=== PATIENT | female | born 1975 | race Caucasian/White ===

== ENCOUNTER 2016-04-22 15:37 | Emergency (ER) | payer OTHER ==
[~2016-04-22] VITALS: Ht 154.9 cm; Wt 73.3 kg
[~2016-04-22 15:37] MED LIST: ABILIFY10 MG PO; ALEVE220 MG PO; AMLODIPINE BESY10 MG PO; AMLODIPINE BESYL5 MG PO; ARIPIPRAZOLE2 MG PO; ATIVAN0.5 MG PO; ATIVAN1 MG PO; BENTYL20 MG PO; BUPROPION XL300 MG PO; CELEXA20 MG PO; CIPRO500 MG PO; COLACE100 MG PO; ESCITALOPRAM OX10 MG PO; ESCITALOPRAM OX20 MG PO; FLUOXETINE HCL40 MG PO; GABAPENTIN100 MG PO; HYDROCHLOROTHIA25 MG PO; HYDROCODON-ACE1 EAC7 PO; KEPPRA500 MG PO; LAMICTAL25 MG PO; LEXAPRO10 MG PO; LEXAPRO20 MG PO; LIBRIUM25 MG PO; LITHIUM CARBON150 MG PO; LITHIUM CARBON300 M1 PO; LITHIUM CARBON300 MG PO; LORAZEPAM1 MG PO; LORTAB 5-325 M1 EACH PO; METHOCARBAMOL500 MG PO; NAPROSYN500 MG PO; NEURONTIN400 MG PO; NORCO 5/3251 TABLET PO; OXYCODONE-APAP1 EACH PO; PEPCID20 MG PO; PERCOCET 5/31 TABLET PO; TRAZODONE HCL50 MG PO; VALIUM5 MG PO; WELLBUTRIN XL300 MG PO; ZESTORETIC 20-1 EAC1 PO; ZOFRAN4 MG PO; ZOFRAN8 MG PO
[2016-04-22] MEDS ORDERED: XARELTO10 MG PO (16:01)
[2016-04-22 16:30] LABS: HEMATOCRIT 38.2 % (36.0-46.0); MCH 33.2 PG (29.0-34.0); MCHC 34.3 G/DL (30.0-36.0); MCV 96.7 FL (83-99); MEAN PLAT.VOLUME 9.8 uM^3 (9.5-12.4); PLATELET COUNT 294 K/uL (156-360); RBC DIS.WIDTH-CV 12.8 % (11.8-14.6); RBC DIS.WIDTH-SD 43.8 % (39-53); RED BLOOD COUNT 3.95 M/uL (3.80-5.20); WHITE BLOOD COUNT 10.6 K/uL (4.1-10.2)
[2016-04-22 16:40] LABS: CHLORIDE 107 mEq/L (99-109); POTASSIUM 3.4 mEq/L (3.7-5.4); SODIUM 140 mEq/L (136-147)
[2016-04-22 16:42] LABS: INTER. NORMALIZED RATIO 0.9; PROTHROMBIN TIME 9.6 (9.2-11.2); PTT 33.8 (25-32)
[2016-04-22 16:43] LABS: GLUCOSE 84 mg/dL (70-99)
[2016-04-22 16:44] LABS: ANION GAP 8 MEQ/L (2-14)
[2016-04-22 16:45] LABS: TOTAL BILIRUBIN 0.2 mg/dL (0.0-1.0)
[2016-04-22 16:46] LABS: ALKALINE PHOSPHATASE 75 IU/L (3-129); GFR ESTIMATE (CALCULATED) > 59 mL/min/
[2016-04-22 16:48] LABS: UREA NITROGEN (BUN) 9 mg/dL (9-23)
[2016-04-22 16:50] LABS: LIPASE 29 U/L (1.0-51.0)
[2016-04-22 16:51] LABS: TROP-I INTERPRETATION NEGATIVE; TROPONIN-I < 0.01 ng/mL (0.0-0.30)
[2016-04-22] MEDS ORDERED: PERCOCET 5/31 TABLET PO (18:41)
[2016-04-22] MEDS ORDERED: MELOXICAM15 MG PO (18:41)
[2016-04-22] MEDS ORDERED: ZOFRAN4 MG PO (18:41)
[2016-04-22 19:00] LABS: ADD MIUA? YES; BILIRUBIN NEGATIVE; BLOOD NEGATIVE; COLOR YELLOW ((YELLOW)); GLUCOSE (STRIP) NEGATIVE; KETONES NEGATIVE; LEUKOCYTES NEGATIVE; NITRITE NEGATIVE; PH, URINE 6.5 (5-8); PROTEIN (STRIP) NEGATIVE; SPECIFIC GRAVITY 1.007 (1.000-1.030); UROBILINOGEN 0.2 MG/DL (0.2-1.0)
[2016-04-22 19:21] VITALS: BP 135/79
[2016-04-22 19:48] LABS: BACTERIA 2+ /HPF; EPITHELIAL CELLS 1+ /HPF; MUCUS NONE SEEN /LPF; RED BLOOD CELLS 0-5 /HPF (0-5); WHITE BLOOD CELLS 0-5 /HPF (0-5)
[2016-04-22 19:49] LABS: CASTS NONE SEEN /LPF; CRYSTALS NONE SEEN
== END 2016-04-22 19:23 | disposition home or self-care (01) ==
LOC: EME 15:37
PROVIDERS: Nurse Practitioner Family
DX: R11.2 Nausea with vomiting, unspecified (principal); M25.552 Pain in left hip; G89.29 Other chronic pain; S46.912A Strain of unspecified muscle, fascia and tendon at shoulder and upper arm level, left arm, initial encounter; J45.909 Unspecified asthma, uncomplicated; R56.9 Unspecified convulsions; F17.200 Nicotine dependence, unspecified, uncomplicated; Z86.711 Personal history of pulmonary embolism; Z79.01 Long term (current) use of anticoagulants
CPT/HCPCS: 71020; 73030; 73502; 80053; 81003; 83690; 84484; 85027; 85610; 85730; 93005; 99281; 99285; J2270; J2405; J7030

== ENCOUNTER 2016-05-11 10:26 | Emergency (ER) | payer OTHER ==
[~2016-05-11] VITALS: Ht 154.9 cm; Wt 69.9 kg
[~2016-05-11 10:26] MED LIST changes: +MELOXICAM15 MG PO; +XARELTO10 MG PO
[2016-05-11 10:36] VITALS: BP 189/103
[2016-05-11 11:28] LABS: MCH 32.5 PG (29.0-34.0); MCHC 34.1 G/DL (30.0-36.0); MCV 95.4 FL (83-99); MEAN PLAT.VOLUME 9.1 uM^3 (9.5-12.4); PLATELET COUNT 398 K/uL (156-360); RBC DIS.WIDTH-CV 12.3 % (11.8-14.6); RBC DIS.WIDTH-SD 41.7 % (39-53); RED BLOOD COUNT 4.09 M/uL (3.80-5.20); WHITE BLOOD COUNT 14.3 K/uL (4.1-10.2)
[2016-05-11 11:39] LABS: CHLORIDE 107 mEq/L (99-109); POTASSIUM 3.7 mEq/L (3.7-5.4); SODIUM 141 mEq/L (136-147)
[2016-05-11 11:41] LABS: GLUCOSE 101 mg/dL (70-99)
[2016-05-11 11:42] LABS: ANION GAP 12 MEQ/L (2-14)
[2016-05-11 11:44] LABS: GFR ESTIMATE (CALCULATED) 58 mL/min/
[2016-05-11 11:45] LABS: UREA NITROGEN (BUN) 9 mg/dL (9-23)
[2016-05-11 11:52] LABS: TROP-I INTERPRETATION NEGATIVE; TROPONIN-I 0.02 ng/mL (0.0-0.30)
== END 2016-05-11 12:48 | disposition left against medical advice (07) ==
LOC: EME 10:26
PROVIDERS: Emergency Medicine
DX: R07.9 Chest pain, unspecified (principal); D72.829 Elevated white blood cell count, unspecified; F17.200 Nicotine dependence, unspecified, uncomplicated
CPT/HCPCS: 70450; 71020; 80048; 84484; 85027; 87502; 93005; 99281; 99284

== ENCOUNTER 2016-06-07 19:20 | Emergency (ER) | payer OTHER ==
[~2016-06-07] VITALS: Ht 154.9 cm; Wt 67.5 kg
[2016-06-07 20:12] VITALS: BP 142/70
[2016-06-08] MEDS ORDERED: KEPPRA500 MG PO (02:55)
== END 2016-06-07 20:14 | disposition home or self-care (01) ==
LOC: EME → EDBD 19:20 → EME 20:14
DX: G40.909 Epilepsy, unspecified, not intractable, without status epilepticus (principal); J45.909 Unspecified asthma, uncomplicated; F17.200 Nicotine dependence, unspecified, uncomplicated
CPT/HCPCS: 99281; 99284

== ENCOUNTER 2016-06-08 01:11 | Emergency (ER) | payer OTHER ==
[~2016-06-08] VITALS: Ht 154.9 cm; Wt 68.2 kg
[2016-06-08 01:59] LABS: HEMATOCRIT 36.9 % (36.0-46.0); MCH 32.8 PG (29.0-34.0); MCHC 34.1 G/DL (30.0-36.0); MCV 96.1 FL (83-99); MEAN PLAT.VOLUME 9.4 uM^3 (9.5-12.4); PLATELET COUNT 357 K/uL (156-360); RBC DIS.WIDTH-CV 12.2 % (11.8-14.6); RBC DIS.WIDTH-SD 42.9 % (39-53); RED BLOOD COUNT 3.84 M/uL (3.80-5.20); WHITE BLOOD COUNT 10.7 K/uL (4.1-10.2)
[2016-06-08 02:20] LABS: CHLORIDE 110 mEq/L (99-109); POTASSIUM 3.9 mEq/L (3.7-5.4); SODIUM 143 mEq/L (136-147)
[2016-06-08 02:22] LABS: GLUCOSE 82 mg/dL (70-99)
[2016-06-08 02:23] LABS: ANION GAP 11 MEQ/L (2-14)
[2016-06-08 02:26] LABS: GFR ESTIMATE (CALCULATED) > 59 mL/min/
[2016-06-08 02:27] LABS: UREA NITROGEN (BUN) 11 mg/dL (9-23)
[2016-06-08] MEDS ORDERED: KEPPRA500 MG PO (02:55)
[2016-06-08 03:23] VITALS: BP 145/85
== END 2016-06-08 03:24 | disposition home or self-care (01) ==
LOC: EME → EDBD 01:11 → EME 01:11
PROVIDERS: Emergency Medicine
DX: R56.9 Unspecified convulsions (principal); R51 Headache; Z91.14 Patient's other noncompliance with medication regimen; F17.200 Nicotine dependence, unspecified, uncomplicated
CPT/HCPCS: 70450; 80048; 81003; 85027; 87086; 99281; 99285; J1885; J1953; J2060; J7050

== ENCOUNTER 2016-06-25 14:46 | Observation (INO) | payer OTHER ==
[~2016-06-25] VITALS: Ht 152.4 cm; Wt 67.0 kg
[2016-06-25 16:05] LABS: HEMATOCRIT 40.2 % (36.0-46.0); MCH 32.9 PG (29.0-34.0); MCHC 34.1 G/DL (30.0-36.0); MCV 96.6 FL (83-99); MEAN PLAT.VOLUME 9.2 uM^3 (9.5-12.4); PLATELET COUNT 388 K/uL (156-360); RBC DIS.WIDTH-CV 11.9 % (11.8-14.6); RBC DIS.WIDTH-SD 42.1 % (39-53); RED BLOOD COUNT 4.16 M/uL (3.80-5.20)
[2016-06-25 16:10] LABS: CHLORIDE 99 mEq/L (99-109); POTASSIUM 4.1 mEq/L (3.7-5.4); SODIUM 137 mEq/L (136-147)
[2016-06-25 16:12] LABS: GLUCOSE 72 mg/dL (70-99)
[2016-06-25 16:13] LABS: ANION GAP 11 MEQ/L (2-14)
[2016-06-25 16:16] LABS: GFR ESTIMATE (CALCULATED) 44 mL/min/; UREA NITROGEN (BUN) 17 mg/dL (9-23)
[2016-06-25 16:23] LABS: TROP-I INTERPRETATION NEGATIVE; TROPONIN-I < 0.01 ng/mL (0.0-0.30)
[2016-06-25] MEDS ORDERED: CLONAZEPAM1 MG PO (20:25)
[2016-06-25] MEDS ORDERED: VENLAFAXINE HC150 M1 PO (20:25)
[2016-06-25] MEDS ORDERED: ONE-A-DAY ESSE1 EAC1 PO (20:29)
[2016-06-25] MEDS ORDERED: LISINOPRIL-HCT1 EACH PO (20:29)
[2016-06-25 20:52] LABS: INTER. NORMALIZED RATIO 0.9; PTT 33.1 (25-32)
[2016-06-25 21:05] LABS: PROTHROMBIN TIME 9.3 (9.2-11.2)
[2016-06-26 00:15] VITALS: BP 147/84
[2016-06-26 00:45] VITALS: BP 147/84
[2016-06-26 04:10] VITALS: BP 121/79
[2016-06-26 04:22] LABS: HEMATOCRIT 37.3 % (36.0-46.0); MCH 33.1 PG (29.0-34.0); MCHC 34.6 G/DL (30.0-36.0); MCV 95.6 FL (83-99); MEAN PLAT.VOLUME 9.3 uM^3 (9.5-12.4); PLATELET COUNT 364 K/uL (156-360); RBC DIS.WIDTH-CV 11.9 % (11.8-14.6); RBC DIS.WIDTH-SD 41.8 % (39-53)
[2016-06-26 04:26] LABS: CHLORIDE 104 mEq/L (99-109); POTASSIUM 4.4 mEq/L (3.7-5.4); SODIUM 138 mEq/L (136-147)
[2016-06-26 04:29] LABS: GLUCOSE 75 mg/dL (70-99); MAGNESIUM 1.9 mg/dL (1.3-2.7)
[2016-06-26 04:30] LABS: ANION GAP 9 MEQ/L (2-14)
[2016-06-26 04:31] LABS: TOTAL BILIRUBIN 0.2 mg/dL (0.0-1.0)
[2016-06-26 04:32] LABS: ALKALINE PHOSPHATASE 77 IU/L (3-129); GFR ESTIMATE (CALCULATED) 48 mL/min/; TOTAL BILIRUBIN 0.2 mg/dL (0.0-1.0)
[2016-06-26 04:33] LABS: ALKALINE PHOSPHATASE 77 IU/L (3-129); UREA NITROGEN (BUN) 15 mg/dL (9-23)
[2016-06-26 04:36] LABS: DIRECT BILIRUBIN 0.1 mg/dL (0.0-0.3)
[2016-06-26 08:06] LABS: ADD MIUA? YES; BILIRUBIN NEGATIVE; BLOOD MODERATE; COLOR YELLOW ((YELLOW)); GLUCOSE (STRIP) NEGATIVE; KETONES NEGATIVE; LEUKOCYTES NEGATIVE; NITRITE NEGATIVE; PROTEIN (STRIP) NEGATIVE; SPECIFIC GRAVITY 1.017 (1.000-1.030); UROBILINOGEN 0.2 MG/DL (0.2-1.0)
[2016-06-26 08:09] VITALS: BP 138/88
[2016-06-26 09:26] LABS: BACTERIA RARE /HPF; EPITHELIAL CELLS RARE /HPF; MUCUS NONE SEEN /LPF; RED BLOOD CELLS 0-5 /HPF (0-5); WHITE BLOOD CELLS 0-5 /HPF (0-5)
[2016-06-26 10:56] VITALS: BP 134/88
[2016-06-26] MEDS ORDERED: ELIQUIS5 MG PO (13:35)
== END 2016-06-26 15:50 | disposition home or self-care (01) ==
LOC: EME 14:46 → EDOF 22:09 → 3EAST 22:09 → EDOF 22:09 → 3EAST 06-26 00:02
PROVIDERS: Hospitalist; Physician Assistant
PROC: 069Y0ZZ Drainage of Lower Vein, Open Approach (ICD-10-PCS; principal; 2016-06-25)
DX: I26.99 Other pulmonary embolism without acute cor pulmonale (principal); N17.9 Acute kidney failure, unspecified; K64.5 Perianal venous thrombosis; Z91.19 Patient's noncompliance with other medical treatment and regimen; F10.20 Alcohol dependence, uncomplicated; F31.9 Bipolar disorder, unspecified; I10 Essential (primary) hypertension; G89.29 Other chronic pain; M54.9 Dorsalgia, unspecified; F17.210 Nicotine dependence, cigarettes, uncomplicated; D72.829 Elevated white blood cell count, unspecified; Z79.01 Long term (current) use of anticoagulants; T45.516A Underdosing of anticoagulants, initial encounter; Z91.128 Patient's intentional underdosing of medication regimen for other reason
CPT/HCPCS: 71020; 71275; 80048; 80053; 80076; 81003; 83735; 84484; 85027; 85610; 85730; 93005; 99281; 99285; G0378; J7030

== ENCOUNTER 2016-08-10 07:56 | Emergency (ER) | payer OTHER ==
[~2016-08-10] VITALS: Ht 154.9 cm; Wt 69.4 kg
[~2016-08-10 07:56] MED LIST changes: +CLONAZEPAM1 MG PO; +ELIQUIS5 MG PO; +LISINOPRIL-HCT1 EACH PO; +ONE-A-DAY ESSE1 EAC1 PO; +VENLAFAXINE HC150 M1 PO
[2016-08-10 08:25] LABS: HEMATOCRIT 34.1 % (36.0-46.0); MCHC 33.7 G/DL (30.0-36.0); MEAN PLAT.VOLUME 9.1 uM^3 (9.5-12.4); PLATELET COUNT 376 K/uL (156-360); RED BLOOD COUNT 3.48 M/uL (3.80-5.20)
[2016-08-10 08:40] LABS: CHLORIDE 103 mEq/L (99-109); POTASSIUM 3.5 mEq/L (3.7-5.4); SODIUM 136 mEq/L (136-147)
[2016-08-10 08:41] LABS: GLUCOSE 84 mg/dL (70-99)
[2016-08-10 08:43] LABS: ANION GAP 10 MEQ/L (2-14)
[2016-08-10 08:45] LABS: GFR ESTIMATE (CALCULATED) 48 mL/min/
[2016-08-10 08:46] LABS: UREA NITROGEN (BUN) 12 mg/dL (9-23)
[2016-08-10 08:51] LABS: TROP-I INTERPRETATION NEGATIVE; TROPONIN-I < 0.01 ng/mL (0.0-0.30)
[2016-08-10] MEDS ORDERED: DILAUDID2 MG PO (11:26)
[2016-08-10 11:40] VITALS: BP 137/81
== END 2016-08-10 11:52 | disposition home or self-care (01) ==
LOC: EME 07:56
DX: M54.12 Radiculopathy, cervical region (principal); R20.2 Paresthesia of skin; J45.909 Unspecified asthma, uncomplicated; I10 Essential (primary) hypertension; Z86.711 Personal history of pulmonary embolism; F17.200 Nicotine dependence, unspecified, uncomplicated
CPT/HCPCS: 71020; 72125; 80048; 84484; 85027; 93005; 99281; 99285; J2270; J3010

== ENCOUNTER 2016-08-12 10:02 | Emergency (ER) | payer OTHER ==
[~2016-08-12] VITALS: Ht 152.4 cm; Wt 69.0 kg
[~2016-08-12 10:02] MED LIST changes: +DILAUDID2 MG PO
[2016-08-12 11:29] VITALS: BP 149/100
== END 2016-08-12 11:31 | disposition home or self-care (01) ==
LOC: EME 10:02
DX: M54.12 Radiculopathy, cervical region (principal); F17.200 Nicotine dependence, unspecified, uncomplicated; S83.91XA Sprain of unspecified site of right knee, initial encounter; W19.XXXA Unspecified fall, initial encounter
CPT/HCPCS: 73564; 99281; 99284; J1885

== ENCOUNTER 2016-08-23 12:53 | Inpatient (IN) | payer OTHER ==
[~2016-08-23] VITALS: Ht 152.4 cm; Wt 67.6 kg
[2016-08-23 15:13] LABS: CHLORIDE 107 mEq/L (99-109); POTASSIUM 4.5 mEq/L (3.7-5.4); SODIUM 137 mEq/L (136-147)
[2016-08-23 15:16] LABS: GLUCOSE 84 mg/dL (70-99); HEMATOCRIT 35.1 % (36.0-46.0); MCH 33.3 PG (29.0-34.0); MCHC 33.9 G/DL (30.0-36.0); MCV 98.3 FL (83-99); MEAN PLAT.VOLUME 8.8 uM^3 (9.5-12.4); PLATELET COUNT 313 K/uL (156-360); RBC DIS.WIDTH-CV 13.3 % (11.8-14.6); RBC DIS.WIDTH-SD 47.8 % (39-53); RED BLOOD COUNT 3.57 M/uL (3.80-5.20); WHITE BLOOD COUNT 13.7 K/uL (4.1-10.2)
[2016-08-23 15:17] LABS: ANION GAP 8 MEQ/L (2-14); TOTAL BILIRUBIN 0.1 mg/dL (0.0-1.0)
[2016-08-23 15:19] LABS: ALKALINE PHOSPHATASE 64 IU/L (3-129); D-DIMER ELISA 0.53 mg/L FEU (< 0.57); GFR ESTIMATE (CALCULATED) 44 mL/min/
[2016-08-23 15:20] LABS: UREA NITROGEN (BUN) 17 mg/dL (9-23)
[2016-08-23 15:23] LABS: LIPASE 365 U/L (1.0-51.0)
[2016-08-23 15:28] LABS: QUANTITATIVE HCG < 4.0 MIU/ML
[2016-08-23 17:00] LABS: SERUM ETHYL ALCOHOL < 10 mg/dL
[2016-08-23 17:09] LABS: TROP-I INTERPRETATION NEGATIVE; TROPONIN-I < 0.01 ng/mL (0.0-0.30)
[2016-08-23] MEDS ORDERED: VENLAFAXINE HC150 M1 PO (17:17)
[2016-08-23] MEDS ORDERED: OXYCODONE-APAP1 EACH PO (17:19)
[2016-08-23 19:59] LABS: MAGNESIUM 2.2 mg/dL (1.3-2.7)
[2016-08-23 21:05] VITALS: BP 118/57
[2016-08-23 23:29] VITALS: BP 93/55
[2016-08-24 07:28] VITALS: BP 124/86
[2016-08-24 07:56] LABS: ALKALINE PHOSPHATASE 46 IU/L (3-129); ANION GAP 5 MEQ/L (2-14); CHLORIDE 113 MEQ/L (99-109); GFR ESTIMATE (CALCULATED) 53 mL/min/; GLUCOSE 77 mg/dL (70-99); HDL CHOLESTEROL 37 MG/DL (Desirable>=50); LDL CHOLESTEROL 84 mg/dL (Desirable<100); LIPASE 50 U/L (1.0-51.0); MAGNESIUM 1.9 mg/dl (1.3-2.7); NON-HDL CHOLESTEROL 98 mg/dL (Desirable<160); POTASSIUM 4.9 MEQ/L (3.7-5.4); SAMPLE HEMOLYSIS CHECK 0; SAMPLE ICTERIC CHECK 0; SAMPLE LIPEMIA CHECK 0; SODIUM 141 MEQ/L (136-147); TOTAL BILIRUBIN 0.2 MG/DL (0.0-1.0); TOTAL CHOLESTEROL 135 mg/dL (Desirable<200); TRIGLYCERIDES 69 MG/DL (Normal: <150); UREA NITROGEN (BUN) 18 mg/dL (9-23)
[2016-08-24 10:04] VITALS: BP 124/86
== END 2016-08-24 12:07 | disposition left against medical advice (07) | DRG 440 ==
LOC: EME 12:53 → EDOF 19:00 → 5SOUTH 20:54
PROVIDERS: Hospitalist; Nurse Practitioner Family; Physician Assistant Medical
DX: K85.90 Acute pancreatitis without necrosis or infection, unspecified (principal); G89.29 Other chronic pain; M54.6 Pain in thoracic spine; F17.210 Nicotine dependence, cigarettes, uncomplicated; F41.8 Other specified anxiety disorders; I12.9 Hypertensive chronic kidney disease with stage 1 through stage 4 chronic kidney disease, or unspecified chronic kidney disease; N18.3 Chronic kidney disease, stage 3 (moderate); Z91.14 Patient's other noncompliance with medication regimen; Z86.718 Personal history of other venous thrombosis and embolism; Z86.711 Personal history of pulmonary embolism; F31.9 Bipolar disorder, unspecified
CPT/HCPCS: 71020; 71275; 74160; 80053; 80061; 80306 90; 81003; 82948; 83690; 83735; 84484; 84702; 85027; 85379; 93005; 99281; 99285; C9113; G0480; J1170; J1650; J1815; J1885; J2060; J2270; J3010; J3411; J7030; J7120

== ENCOUNTER 2016-09-13 22:09 | Emergency (ER) | payer OTHER ==
[~2016-09-13] VITALS: Ht 154.9 cm; Wt 65.8 kg
[2016-09-14] MEDS ORDERED: PERCOCET 5/31 TABLET PO (00:38)
[2016-09-14 01:27] VITALS: BP 140/80
== END 2016-09-14 01:29 | disposition home or self-care (01) ==
LOC: EME 22:09
DX: M25.512 Pain in left shoulder (principal); I10 Essential (primary) hypertension; F17.200 Nicotine dependence, unspecified, uncomplicated
CPT/HCPCS: 93005; 99281; 99284; J1885

== ENCOUNTER 2016-10-05 08:49 | Emergency (ER) | payer SELFPAY ==
[~2016-10-05] VITALS: Ht 154.9 cm; Wt 38.6 kg
[2016-10-05] MEDS ORDERED: LEVETIRACETAM500 MG PO (09:07)
[2016-10-05] MEDS ORDERED: KEPPRA500 MG PO (10:02)
[2016-10-05 10:18] VITALS: BP 125/83
== END 2016-10-05 10:20 | disposition home or self-care (01) ==
LOC: EME → EDBD 08:49 → EME 10:20
DX: G40.909 Epilepsy, unspecified, not intractable, without status epilepticus (principal); T42.6X6A Underdosing of other antiepileptic and sedative-hypnotic drugs, initial encounter; Z91.128 Patient's intentional underdosing of medication regimen for other reason; F32.9 Major depressive disorder, single episode, unspecified; I10 Essential (primary) hypertension; J45.909 Unspecified asthma, uncomplicated; F17.200 Nicotine dependence, unspecified, uncomplicated; Z90.49 Acquired absence of other specified parts of digestive tract
CPT/HCPCS: 99281; 99284

== ENCOUNTER 2016-11-10 11:00 | Emergency (ER) | payer OTHER ==
[~2016-11-10] VITALS: Ht 154.9 cm; Wt 62.1 kg
[~2016-11-10 11:00] MED LIST changes: +LEVETIRACETAM500 MG PO
[2016-11-10] MEDS ORDERED: PERCOCET 10/1 TABLET PO (13:01)
[2016-11-10 13:29] VITALS: BP 142/78
== END 2016-11-10 13:33 | disposition home or self-care (01) ==
LOC: EME 11:00
DX: M54.5 Low back pain (principal); J45.909 Unspecified asthma, uncomplicated; I10 Essential (primary) hypertension; F17.200 Nicotine dependence, unspecified, uncomplicated
CPT/HCPCS: J2270

== ENCOUNTER 2016-11-15 16:34 | Emergency (ER) | payer OTHER ==
[~2016-11-15] VITALS: Ht 154.9 cm; Wt 61.7 kg
[~2016-11-15 16:34] MED LIST changes: +PERCOCET 10/1 TABLET PO
[2016-11-15] MEDS ORDERED: PERCOCET 5/31 TABLET PO (16:59)
[2016-11-15] MEDS ORDERED: FLEXERIL10 MG PO (16:59)
[2016-11-15 17:58] VITALS: BP 154/85
== END 2016-11-15 17:59 | disposition home or self-care (01) ==
LOC: EME 16:34
DX: G89.29 Other chronic pain (principal); M54.41 Lumbago with sciatica, right side; F17.200 Nicotine dependence, unspecified, uncomplicated
CPT/HCPCS: 99281; 99283; J1885; J2270

== ENCOUNTER 2016-12-03 18:40 | Emergency (ER) | payer OTHER ==
[~2016-12-03] VITALS: Ht 154.9 cm; Wt 61.3 kg
[~2016-12-03 18:40] MED LIST changes: +FLEXERIL10 MG PO
[2016-12-03] MEDS ORDERED: PERCOCET 5/31 TABLET PO ×2 (19:17→19:22)
[2016-12-03 19:33] VITALS: BP 115/75
== END 2016-12-03 19:34 | disposition home or self-care (01) ==
LOC: EME 18:40
DX: G89.29 Other chronic pain (principal); M25.552 Pain in left hip; M25.512 Pain in left shoulder; I10 Essential (primary) hypertension; F17.200 Nicotine dependence, unspecified, uncomplicated
CPT/HCPCS: 99281; 99282

== ENCOUNTER 2016-12-05 13:27 | Emergency (ER) | payer OTHER ==
[~2016-12-05] VITALS: Ht 154.9 cm; Wt 60.8 kg
[2016-12-05] MEDS ORDERED: PREDNISONE50 MG PO (16:37)
[2016-12-05] MEDS ORDERED: PERCOCET 5/31 TABLET PO (16:37)
[2016-12-05 16:50] VITALS: BP 119/72
== END 2016-12-05 16:51 | disposition home or self-care (01) ==
LOC: EME 13:27
DX: M25.552 Pain in left hip (principal); M25.561 Pain in right knee; F17.200 Nicotine dependence, unspecified, uncomplicated
CPT/HCPCS: 73502; 73564; 99281; 99284; J2270

== ENCOUNTER 2016-12-11 19:07 | Emergency (ER) | payer OTHER ==
[~2016-12-11] VITALS: Ht 180.3 cm; Wt 65.0 kg
[~2016-12-11 19:07] MED LIST changes: +PREDNISONE50 MG PO
[2016-12-11 19:44] LABS: HEMATOCRIT 34.5 % (36.0-46.0); MCH 33.9 PG (29.0-34.0); MCHC 34.2 G/DL (30.0-36.0); MCV 99.1 FL (83-99); MEAN PLAT.VOLUME 8.9 uM^3 (9.5-12.4); PLATELET COUNT 449 K/uL (156-360); RBC DIS.WIDTH-CV 12.5 % (11.8-14.6); RBC DIS.WIDTH-SD 45.2 % (39-53); RED BLOOD COUNT 3.48 M/uL (3.80-5.20); WHITE BLOOD COUNT 11.6 K/uL (4.1-10.2)
[2016-12-11 20:21] LABS: TROP-I INTERPRETATION NEGATIVE; TROPONIN-I < 0.01 ng/mL (0.0-0.30)
[2016-12-11 20:23] LABS: AMYLASE 61 IU/L (1-118); CHLORIDE 102 mEq/L (99-109); POTASSIUM 4.3 mEq/L (3.7-5.4); SODIUM 135 mEq/L (136-147)
[2016-12-11 20:25] LABS: GLUCOSE 87 mg/dL (70-99)
[2016-12-11 20:26] LABS: ANION GAP 12 MEQ/L (2-14)
[2016-12-11 20:29] LABS: GFR ESTIMATE (CALCULATED) 41 mL/min/
[2016-12-11 20:30] LABS: UREA NITROGEN (BUN) 34 mg/dL (9-23)
[2016-12-11 20:32] LABS: LIPASE 63 U/L (1.0-51.0)
[2016-12-11 21:56] LABS: TROP-I INTERPRETATION NEGATIVE; TROPONIN-I < 0.01 ng/mL (0.0-0.30)
[2016-12-11 23:11] VITALS: BP 119/74
[2016-12-12] MEDS ORDERED: MEDROL DOSEPAK4 MG PO (20:15)
[2016-12-12] MEDS ORDERED: SKELAXIN800 MG PO (20:15)
== END 2016-12-11 23:12 | disposition home or self-care (01) ==
LOC: EME 19:07
PROVIDERS: Physician Assistant
DX: R07.9 Chest pain, unspecified (principal); N17.9 Acute kidney failure, unspecified; M25.552 Pain in left hip; M25.562 Pain in left knee; M79.602 Pain in left arm; R51 Headache; R10.9 Unspecified abdominal pain; M54.5 Low back pain; G89.29 Other chronic pain; R11.0 Nausea; R42 Dizziness and giddiness; I10 Essential (primary) hypertension; Z86.711 Personal history of pulmonary embolism; Z79.01 Long term (current) use of anticoagulants; Z90.49 Acquired absence of other specified parts of digestive tract; F17.200 Nicotine dependence, unspecified, uncomplicated; Z53.29 Procedure and treatment not carried out because of patient's decision for other reasons
CPT/HCPCS: 71020; 80048; 82150; 83690; 84484; 85027; 93005; 99281; 99285; J1885; J7030

== ENCOUNTER 2016-12-12 13:38 | Emergency (ER) | payer OTHER ==
[~2016-12-12] VITALS: Ht 154.9 cm; Wt 65.0 kg
[2016-12-12 14:37] LABS: HEMATOCRIT 36.7 % (36.0-46.0); MCH 33.5 PG (29.0-34.0); MCHC 34.3 G/DL (30.0-36.0); MCV 97.6 FL (83-99); PLATELET COUNT 422 K/uL (156-360); RBC DIS.WIDTH-CV 12.5 % (11.8-14.6); RED BLOOD COUNT 3.76 M/uL (3.80-5.20); WHITE BLOOD COUNT 14.4 K/uL (4.1-10.2)
[2016-12-12 14:48] LABS: CHLORIDE 103 mEq/L (99-109); POTASSIUM 4.7 mEq/L (3.7-5.4); SODIUM 135 mEq/L (136-147)
[2016-12-12 14:50] LABS: GLUCOSE 81 mg/dL (70-99)
[2016-12-12 14:51] LABS: ANION GAP 13 MEQ/L (2-14)
[2016-12-12 14:52] LABS: TOTAL BILIRUBIN 0.1 mg/dL (0.0-1.0)
[2016-12-12 14:53] LABS: ALKALINE PHOSPHATASE 67 IU/L (3-129)
[2016-12-12 14:54] LABS: GFR ESTIMATE (CALCULATED) 48 mL/min/
[2016-12-12 14:55] LABS: UREA NITROGEN (BUN) 31 mg/dL (9-23)
[2016-12-12 15:51] LABS: ADD MIUA? NO; BILIRUBIN NEGATIVE; BLOOD NEGATIVE; COLOR STRAW ((YELLOW)); GLUCOSE (STRIP) NEGATIVE; KETONES NEGATIVE; LEUKOCYTES NEGATIVE; NITRITE NEGATIVE; PROTEIN (STRIP) NEGATIVE; UROBILINOGEN 0.2 MG/DL (0.2-1.0)
[2016-12-12 15:57] LABS: UCUL ADDED? NO
[2016-12-12] MEDS ORDERED: SKELAXIN800 MG PO (20:15)
[2016-12-12] MEDS ORDERED: MEDROL DOSEPAK4 MG PO (20:15)
[2016-12-12 20:59] VITALS: BP 128/80
== END 2016-12-12 21:01 | disposition home or self-care (01) ==
LOC: EME 13:38
PROVIDERS: Physician Assistant
DX: M54.42 Lumbago with sciatica, left side (principal); G89.29 Other chronic pain; I10 Essential (primary) hypertension; Z86.711 Personal history of pulmonary embolism; F17.200 Nicotine dependence, unspecified, uncomplicated
CPT/HCPCS: 72132; 74177; 80053; 81003; 85027; 99281; 99283; J1885; J2930; J7030; J7050

== ENCOUNTER 2016-12-12 22:19 | Emergency (ER) | payer OTHER ==
[~2016-12-12] VITALS: Ht 154.9 cm; Wt 65.9 kg
[~2016-12-12 22:19] MED LIST changes: +MEDROL DOSEPAK4 MG PO; +SKELAXIN800 MG PO
[2016-12-13 00:56] VITALS: BP 111/76
== END 2016-12-13 00:56 | disposition home or self-care (01) ==
LOC: EME 22:19
DX: G89.29 Other chronic pain (principal); M54.5 Low back pain; M79.605 Pain in left leg; F17.200 Nicotine dependence, unspecified, uncomplicated
CPT/HCPCS: 99281; 99283; J1630

== ENCOUNTER 2017-01-18 15:42 | Emergency (ER) | payer OTHER ==
[~2017-01-18] VITALS: Ht 154.9 cm; Wt 65.9 kg
[2017-01-18] MEDS ORDERED: NAPROXEN500 MG PO (18:09)
[2017-01-18 18:30] VITALS: BP 121/104
== END 2017-01-18 18:31 | disposition home or self-care (01) ==
LOC: EME 15:42
DX: S00.83XA Contusion of other part of head, initial encounter (principal); M25.561 Pain in right knee; W10.9XXA Fall (on) (from) unspecified stairs and steps, initial encounter; Y93.01 Activity, walking, marching and hiking; I10 Essential (primary) hypertension; J45.909 Unspecified asthma, uncomplicated; F32.9 Major depressive disorder, single episode, unspecified; F41.9 Anxiety disorder, unspecified; F17.200 Nicotine dependence, unspecified, uncomplicated
CPT/HCPCS: 70450; 72125; 73564; 99281; 99284

== ENCOUNTER 2017-06-11 20:27 | Inpatient (IN) | payer OTHER ==
[~2017-06-11] VITALS: Ht 154.9 cm; Wt 69.6 kg
[~2017-06-11 20:27] MED LIST changes: +NAPROXEN500 MG PO
[2017-06-11] MEDS ORDERED: GABAPENTIN300 MG PO (21:03)
[2017-06-11] MEDS ORDERED: LODINE400 MG PO (21:04)
[2017-06-11] MEDS ORDERED: SULINDAC200 MG PO (21:04)
[2017-06-11] MEDS ORDERED: VIMPAT150 MG PO (21:05)
[2017-06-11] MEDS ORDERED: VENLAFAXINE HC150 M1 PO (21:05)
[2017-06-11 21:25] LABS: AMPHETAMINE NEGATIVE (500 ng/mL); BENZODIAZEPINES PRESUMPTIVE POSITIVE (150 ng/mL); COCAINE NEGATIVE (150 ng/mL); METHAMPHETAMINE NEGATIVE (500 ng/mL); OPIATES (MORPHINE) NEGATIVE (100 ng/mL); PHENCYCLIDINE NEGATIVE (25 ng/mL); THC CANNABINOIDS NEGATIVE (50 ng/mL)
[2017-06-11 21:26] LABS: BARBITURATES NEGATIVE (200 ng/mL); BUPRENORPHINE NEGATIVE (10 ng/mL); METHADONE NEGATIVE (200 ng/mL); OXYCODONE PRESUMPTIVE POSITIVE (100 ng/mL); PROPOXYPHENE NEGATIVE (300 ng/mL); TRICYCLIC ANTIDEPRESSANTS NEGATIVE (300 ng/mL)
[2017-06-11 21:33] LABS: HEMOGLOBIN 11.3 G/DL (11.9-15.5); MCH 35.8 PG (29.0-34.0); MCHC 35.3 G/DL (30.0-36.0); MCV 101.3 FL (83-99); PLATELET COUNT 374 K/uL (156-360); RBC DIS.WIDTH-CV 13.4 % (11.8-14.6); RED BLOOD COUNT 3.16 M/uL (3.80-5.20); WHITE BLOOD COUNT 16.4 K/uL (4.1-10.2)
[2017-06-11 21:41] LABS: ALBUMIN 3.4 g/dL (3.2-4.8)
[2017-06-11 21:42] LABS: CHLORIDE 103 mEq/L (99-109); POTASSIUM 3.7 mEq/L (3.7-5.4); SODIUM 138 mEq/L (136-147)
[2017-06-11 21:44] LABS: GLUCOSE 82 mg/dL (70-99); TOTAL PROTEIN 6.4 g/dL (6.4-8.3)
[2017-06-11 21:46] LABS: TOTAL BILIRUBIN 0.2 mg/dL (0.0-1.0)
[2017-06-11 21:47] LABS: SERUM ETHYL ALCOHOL < 10 mg/dL
[2017-06-11 21:48] LABS: ALKALINE PHOSPHATASE 71 IU/L (3-129); CREATININE 1.3 mg/dL (0.6-1.3); GFR ESTIMATE (CALCULATED) 48 mL/min/
[2017-06-11 21:49] LABS: AST (GOT) 13 IU/L (2-34)
[2017-06-11 21:50] LABS: UREA NITROGEN (BUN) 19 mg/dL (9-23)
[2017-06-11 21:51] LABS: ALT (GPT) 8 IU/L (3-49); SALICYLATE < 5.0 MG/DL (15-30)
[2017-06-11 21:52] LABS: ACETAMINOPHEN (TYLENOL) < 10 mcg/mL (10-30)
[2017-06-11 21:53] LABS: BENZODIAZEPINES, URINE SCREEN Negative (200 ng/mL)
[2017-06-12 03:25] VITALS: BP 120/78
[2017-06-12 07:52] VITALS: BP 100/56
[2017-06-12 16:18] VITALS: BP 137/67
[2017-06-12 18:52] VITALS: BP 130/76
[2017-06-13 07:53] VITALS: BP 123/71
[2017-06-13 15:41] VITALS: BP 154/90
[2017-06-13 18:18] VITALS: BP 141/86
[2017-06-14 07:59] VITALS: BP 143/82
[2017-06-14] MEDS ORDERED: KETOROLAC TROME10 MG PO (10:47)
[2017-06-14] MEDS ORDERED: EFFEXOR XR75 MG PO ×2 (10:47→10:49)
[2017-06-16] MEDS ORDERED: EFFEXOR XR75 MG PO (14:00)
== END 2017-06-14 12:24 | disposition home or self-care (01) | DRG 880 ==
LOC: EME → EDBD 20:27 → EME 20:27 → 1WEST 06-12 01:53 → EDOF 06-12 01:53 → ENRESERV 06-12 02:43 → 1WEST 06-12 03:15
PROVIDERS: Emergency Medicine
DX: R45.851 Suicidal ideations (principal); F33.1 Major depressive disorder, recurrent, moderate; T46.4X1A Poisoning by angiotensin-converting-enzyme inhibitors, accidental (unintentional), initial encounter; F43.20 Adjustment disorder, unspecified; G89.29 Other chronic pain; I10 Essential (primary) hypertension; M19.90 Unspecified osteoarthritis, unspecified site; F17.210 Nicotine dependence, cigarettes, uncomplicated; F10.21 Alcohol dependence, in remission; G47.00 Insomnia, unspecified; J45.909 Unspecified asthma, uncomplicated; Z83.3 Family history of diabetes mellitus; Z82.49 Family history of ischemic heart disease and other diseases of the circulatory system
CPT/HCPCS: 80053; 84999; 85027; 90839; 93005; 97150 GO; 97165 GO; 99281; 99285; G0480

== ENCOUNTER 2017-07-17 21:19 | Emergency (ER) | payer OTHER ==
[~2017-07-17] VITALS: Ht 160 cm; Wt 70.8 kg
[~2017-07-17 21:19] MED LIST changes: +EFFEXOR XR75 MG PO; +GABAPENTIN300 MG PO; +KETOROLAC TROME10 MG PO; +LODINE400 MG PO; +SULINDAC200 MG PO; +VIMPAT150 MG PO
[2017-07-17 22:05] LABS: HEMOGLOBIN 10.8 G/DL (11.9-15.5); MCH 35.4 PG (29.0-34.0); MCHC 37.2 G/DL (30.0-36.0); PLATELET COUNT 356 K/uL (156-360); RBC DIS.WIDTH-CV 11.8 % (11.8-14.6); RBC DIS.WIDTH-SD 40.7 % (39-53); RED BLOOD COUNT 3.05 M/uL (3.80-5.20); WHITE BLOOD COUNT 15.9 K/uL (4.1-10.2)
[2017-07-17 22:09] LABS: MCV 95.1 FL (83-99)
[2017-07-17 22:28] LABS: CHLORIDE 98 MEQ/L (99-109); POTASSIUM 2.6 MEQ/L (3.7-5.4); SODIUM 128 MEQ/L (136-147)
[2017-07-17 22:33] LABS: GFR ESTIMATE (CALCULATED) > 59 mL/min/; GLUCOSE 94 mg/dL (70-99); UREA NITROGEN (BUN) 11 mg/dL (9-23)
[2017-07-17 22:38] LABS: QUANTITATIVE HCG < 4.0 MIU/ML
[2017-07-17 22:40] VITALS: BP 109/72
== END 2017-07-17 22:41 | disposition left against medical advice (07) ==
LOC: EME → EDBD 21:19 → EME 21:19
PROVIDERS: Emergency Medicine
DX: R56.9 Unspecified convulsions (principal); Z53.21 Procedure and treatment not carried out due to patient leaving prior to being seen by health care provider; R94.31 Abnormal electrocardiogram [ECG] [EKG]; I10 Essential (primary) hypertension; J45.909 Unspecified asthma, uncomplicated; G43.909 Migraine, unspecified, not intractable, without status migrainosus; F41.9 Anxiety disorder, unspecified; F32.9 Major depressive disorder, single episode, unspecified; F17.200 Nicotine dependence, unspecified, uncomplicated; Z87.19 Personal history of other diseases of the digestive system; Z90.49 Acquired absence of other specified parts of digestive tract; Z88.8 Allergy status to other drugs, medicaments and biological substances
CPT/HCPCS: 80048; 81003; 84702; 85027; 93005; 99281; 99285; J2060

== ENCOUNTER 2017-07-20 22:16 | Emergency (ER) | payer OTHER ==
[~2017-07-20] VITALS: Ht 154.9 cm; Wt 61.2 kg
[2017-07-20 23:32] LABS: HEMATOCRIT 35.3 % (36.0-46.0); MCH 35.8 PG (29.0-34.0); MCHC 36.5 G/DL (30.0-36.0); MCV 98.1 FL (83-99); PLATELET COUNT 393 K/uL (156-360); RBC DIS.WIDTH-SD 43.7 % (39-53); WHITE BLOOD COUNT 13.2 K/uL (4.1-10.2)
[2017-07-20 23:34] LABS: HEMOGLOBIN 12.9 G/DL (11.9-15.5)
[2017-07-20 23:43] LABS: CHLORIDE 105 mEq/L (99-109)
[2017-07-20 23:44] LABS: GLUCOSE 89 mg/dL (70-99)
[2017-07-20 23:48] LABS: CREATININE 1.1 mg/dL (0.6-1.3); GFR ESTIMATE (CALCULATED) 58 mL/min/; POTASSIUM 3.2 mEq/L (3.7-5.4); SERUM ETHYL ALCOHOL < 10 mg/dL; SODIUM 141 mEq/L (136-147)
[2017-07-20 23:50] LABS: UREA NITROGEN (BUN) 28 mg/dL (9-23)
[2017-07-20 23:51] LABS: SALICYLATE < 5.0 MG/DL (15-30)
[2017-07-20 23:52] LABS: ACETAMINOPHEN (TYLENOL) < 10 mcg/mL (10-30)
[2017-07-21 02:02] VITALS: BP 134/85
== END 2017-07-21 02:03 | disposition home or self-care (01) ==
LOC: EME 22:16
PROVIDERS: Emergency Medicine
DX: F32.9 Major depressive disorder, single episode, unspecified (principal); Z53.21 Procedure and treatment not carried out due to patient leaving prior to being seen by health care provider; I10 Essential (primary) hypertension; J45.909 Unspecified asthma, uncomplicated; R56.9 Unspecified convulsions; G43.909 Migraine, unspecified, not intractable, without status migrainosus; F17.200 Nicotine dependence, unspecified, uncomplicated; F41.9 Anxiety disorder, unspecified; F20.9 Schizophrenia, unspecified; Z87.19 Personal history of other diseases of the digestive system; Z90.49 Acquired absence of other specified parts of digestive tract; Z88.8 Allergy status to other drugs, medicaments and biological substances
CPT/HCPCS: 80048; 85027; 90839; 99281; 99284; G0480

== ENCOUNTER 2017-07-21 10:12 | Inpatient (IN) | payer OTHER ==
[~2017-07-21] VITALS: Ht 154.9 cm; Wt 64.4 kg
[2017-07-21 10:57] LABS: HEMATOCRIT 37.9 % (36.0-46.0); HEMOGLOBIN 13.6 G/DL (11.9-15.5); MCH 35.1 PG (29.0-34.0); MCHC 35.9 G/DL (30.0-36.0); MCV 97.9 FL (83-99); PLATELET COUNT 439 K/uL (156-360); RBC DIS.WIDTH-CV 11.9 % (11.8-14.6); RBC DIS.WIDTH-SD 43.1 % (39-53); RED BLOOD COUNT 3.87 M/uL (3.80-5.20); WHITE BLOOD COUNT 11.1 K/uL (4.1-10.2)
[2017-07-21 11:05] LABS: CHLORIDE 100 mEq/L (99-109); POTASSIUM 3.2 mEq/L (3.7-5.4); SODIUM 138 mEq/L (136-147)
[2017-07-21 11:07] LABS: GLUCOSE 94 mg/dL (70-99)
[2017-07-21 11:10] LABS: SERUM ETHYL ALCOHOL < 10 mg/dL
[2017-07-21 11:11] LABS: CREATININE 1.2 mg/dL (0.6-1.3); GFR ESTIMATE (CALCULATED) 53 mL/min/
[2017-07-21 11:12] LABS: UREA NITROGEN (BUN) 30 mg/dL (9-23)
[2017-07-21 18:26] VITALS: BP 132/86
[2017-07-22 08:11] VITALS: BP 115/63
[2017-07-22 16:01] VITALS: BP 127/86
[2017-07-23 07:57] VITALS: BP 128/90
[2017-07-23 09:27] LABS: BASOPHIL (%) 0.2 % (0-1); EOSINOPHIL (%) 0.7 % (0-5); EOSINOPHIL COUNT 0.1 K/uL (0-0.3); HEMATOCRIT 35.5 % (36.0-46.0); HEMOGLOBIN 12.8 G/DL (11.9-15.5); IMMATURE GRANULOCYTE (%) 0.5 % (0.0-0.7); LYMPHOCYTE (%) 16.8 % (15-42); LYMPHOCYTE COUNT 2.6 K/uL (1.0-2.8); MCH 34.2 PG (29.0-34.0); MCHC 36.1 G/DL (30.0-36.0); MCV 94.9 FL (83-99); MONOCYTE (%) 6.5 % (3-12); NEUTROPHIL (%) 75.3 % (45-76); NEUTROPHIL COUNT 11.6 K/uL (1.8-6.4); PLATELET COUNT 385 K/uL (156-360); RBC DIS.WIDTH-CV 11.8 % (11.8-14.6); RBC DIS.WIDTH-SD 40.7 % (39-53); RED BLOOD COUNT 3.74 M/uL (3.80-5.20); WHITE BLOOD COUNT 15.3 K/uL (4.1-10.2)
[2017-07-23 09:52] LABS: CHLORIDE 100 MEQ/L (99-109); CREATININE 1.2 MG/DL (0.6-1.3); GFR ESTIMATE (CALCULATED) 53 mL/min/; GLUCOSE 89 mg/dL (70-99); POTASSIUM 3.6 MEQ/L (3.7-5.4); UREA NITROGEN (BUN) 18 mg/dL (9-23)
[2017-07-23 09:55] LABS: SODIUM 129 MEQ/L (136-147)
[2017-07-23 15:45] VITALS: BP 124/75
[2017-07-24 07:46] VITALS: BP 123/76
[2017-07-24 15:35] VITALS: BP 118/76
[2017-07-25 07:56] VITALS: BP 115/64
[2017-07-25 15:48] VITALS: BP 125/85
[2017-07-26 07:56] VITALS: BP 125/76
[2017-07-26] MEDS ORDERED: VENLAFAXINE HCL75 M3 PO (09:42)
== END 2017-07-26 10:40 | disposition home or self-care (01) | DRG 101 ==
LOC: EME 10:12 → 1WEST 11:44 → EDOF 11:44 → 1WEST 11:44 → ENRESERV 14:36 → 1WEST 15:59
PROVIDERS: Emergency Medicine Emergency Medical Services; Hospitalist; Psychiatry & Neurology Psychiatry
DX: G40.909 Epilepsy, unspecified, not intractable, without status epilepticus (principal); F05 Delirium due to known physiological condition; R45.850 Homicidal ideations; F32.9 Major depressive disorder, single episode, unspecified; F19.10 Other psychoactive substance abuse, uncomplicated; I10 Essential (primary) hypertension; G89.4 Chronic pain syndrome; F17.200 Nicotine dependence, unspecified, uncomplicated; F10.21 Alcohol dependence, in remission
CPT/HCPCS: 80048; 82948; 85025; 85027; 90837; 97150 GO; 97166 GO; 99281; 99285; G0480; J1630; Q0177

== ENCOUNTER 2017-10-03 11:17 | Emergency (ER) | payer OTHER ==
[~2017-10-03] VITALS: Ht 160 cm; Wt 63.4 kg
[~2017-10-03 11:17] MED LIST changes: +VENLAFAXINE HCL75 M3 PO
[2017-10-03] MEDS ORDERED: FLEXERIL10 MG PO (15:33)
[2017-10-03] MEDS ORDERED: PERCOCET 5/31 TABLET PO (15:33)
[2017-10-03 16:26] VITALS: BP 152/90
== END 2017-10-03 16:26 | disposition home or self-care (01) ==
LOC: EME 11:17
DX: M54.9 Dorsalgia, unspecified (principal); F11.23 Opioid dependence with withdrawal; Z98.890 Other specified postprocedural states; I10 Essential (primary) hypertension; J45.909 Unspecified asthma, uncomplicated; R56.9 Unspecified convulsions; F32.9 Major depressive disorder, single episode, unspecified; F41.9 Anxiety disorder, unspecified; F17.200 Nicotine dependence, unspecified, uncomplicated; Z90.49 Acquired absence of other specified parts of digestive tract; Z88.8 Allergy status to other drugs, medicaments and biological substances
CPT/HCPCS: 72100; 99281; 99284; J2060; J3010; J7050